=== PATIENT | male | born 2000 | race Caucasian/White ===

== ENCOUNTER 2020-08-24 22:02 | Emergency (ER) | payer OTHER ==
[2020-08-24 23:52] LABS: HEMOGLOBIN 15.5 gm/dl (14.0-17.5); RED BLOOD COUNT 5.11 M/UL (4.20-5.50)
[2020-08-25 00:08] LABS: BUN/CREATININE RATIO 17 (0-10)
[2020-08-25] MEDS ORDERED: TORADOL 10 MG T10 MG PO (02:23)
== END 2020-08-25 02:39 | disposition home or self-care (01) ==
LOC: ER1 22:02
DX: N20.1 Calculus of ureter (principal); F17.220 Nicotine dependence, chewing tobacco, uncomplicated
CPT/HCPCS: 80053; 81001; 83690; 85025; 99284